=== PATIENT | female | born 1995 | race Caucasian/White ===

== ENCOUNTER 2021-07-16 23:42 | Inpatient (IN) | payer MEDICAID ==
[~2021-07-16] VITALS: Ht 154.9 cm; Wt 110.7 kg
[2021-07-17] VITALS (9 sets, daily range): BP systolic 91–123; BP diastolic 46–76
[2021-07-17 02:39] LABS: BASOPHILS % 0.7 % (0.0-2.0); EOSINOPHILS % 1.4 % (0.0-5.0); MEAN CORPUSCULAR VOLUME 54.9 fL (81.0-99.0); MEAN PLATELET VOLUME 8.5 fl (7.4-10.4); NEUTROPHILS % 73.9 % (40.0-76.0); PLATELET 343 x1000/uL (130-400); RED CELL DISTRIBUTION WIDTH 21.4 % (11.6-14.6)
[2021-07-17 02:48] LABS: CHLORIDE 106 mEq/L (98-107)
[2021-07-17 02:51] LABS: HEMATOCRIT. 15.9 % (36.0-48.0); HEMOGLOBIN. 4.6 g/dL (12.0-16.0)
[2021-07-17] MEDS ORDERED: SODIUM CHLORIDE 0.9% 1,000 ML IV ONE (03:00)
[2021-07-17 04:43] LABS: PLATELET ESTIMATE NORMAL
[2021-07-17] MEDS ORDERED: ONDANSETRON HCL 4MG/2ML INJ IV PRN (09:15)
[2021-07-17] MEDS ORDERED: DOCU-138 MT (10:34)
[2021-07-17] MEDS ORDERED: FERR325T23 MT (10:34)
[2021-07-17 10:46] LABS: INR 1.1; PROTHROMBIN TIME 11.4 sec (9.6-11.0)
[2021-07-17 11:02] LABS: HEMATOCRIT 18.2 % (36.0-48.0); HEMOGLOBIN 5.3 g/dL (12.0-16.0)
[2021-07-17] MEDS: ACETAMINOPHEN 325MG TABLET PO PRN ×2 (11:49→12:56)
[2021-07-17] MEDS: FERROUS SULFATE 325MG TABLET PO SCH ×2 (13:07→17:57)
[2021-07-17 16:09] LABS: HEMOGLOBIN 5.9 g/dL (12.0-16.0)
[2021-07-17 16:10] LABS: HEMATOCRIT 19.1 % (36.0-48.0)
[2021-07-17 16:31] LABS: INR 1.1; PROTHROMBIN TIME 11.4 sec (9.6-11.0)
[2021-07-17] MEDS: DOCUSATE SODIUM 100MG CAPSULE PO SCH (17:57)
[2021-07-17 22:01] LABS: HEMATOCRIT 23.4 % (36.0-48.0); HEMOGLOBIN 7.3 g/dL (12.0-16.0)
[2021-07-17 22:10] LABS: PROTHROMBIN TIME 11.2 sec (9.6-11.0)
[2021-07-18] VITALS: BP 101/62
[2021-07-18 01:27] LABS: *AMPHETAMINES SCREEN URINE NEGATIVE (NEGATIVE); *BARBITURATES SCREEN URINE NEGATIVE (NEGATIVE); *BENZODIAZEPINES SCREEN URINE NEGATIVE (NEGATIVE); *COCAINE SCREEN URINE NEGATIVE (NEGATIVE); METHADONE URINE SCREEN NEGATIVE (NEGATIVE)
[2021-07-18 01:28] LABS: CANNABINOID URINE SCREEN NEGATIVE (NEGATIVE); OPIATES URINE SCREEN NEGATIVE (NEGATIVE); PHENCYCLIDINE URINE SCREEN NEGATIVE (NEGATIVE)
[2021-07-18 04:00] VITALS: BP 100/59
[2021-07-18 08:00] VITALS: BP 123/72
[2021-07-18] MEDS: FERROUS SULFATE 325MG TABLET PO SCH ×2 (08:30→12:03)
[2021-07-18] MEDS: DOCUSATE SODIUM 100MG CAPSULE PO SCH (08:30)
[2021-07-18 11:03] VITALS: BP 122/72
[2021-07-18 12:00] VITALS: BP 113/68
== END 2021-07-18 16:36 | disposition home or self-care (01) | DRG 663 ==
LOC: ER 23:42 → 6WST 07-17 03:55 → ENRESERV 07-17 05:37
PROVIDERS: ADMIT Internal Medicine; ATTEND Internal Medicine
PROC: 30233N1 Transfusion of Nonautologous Red Blood Cells into Peripheral Vein, Percutaneous Approach (ICD-10-PCS; principal; 2021-07-17)
DX: D64.9 Anemia, unspecified (principal); D25.9 Leiomyoma of uterus, unspecified; E66.9 Obesity, unspecified; R05 Cough; M54.89 Other dorsalgia; E07.9 Disorder of thyroid, unspecified; Z20.822 Contact with and (suspected) exposure to COVID-19; Z82.49 Family history of ischemic heart disease and other diseases of the circulatory system; Z68.42 Body mass index [BMI] 45.0-49.9, adult; Z71.3 Dietary counseling and surveillance
CPT/HCPCS: 36415; 71045; 76830; 76856; 80048; 80305; 85014; 85018; 85025; 85049; 85384; 86850; 86900; 86920; 87426; 99291; P9016